=== PATIENT | male | born 1975 | race Caucasian/White ===

== ENCOUNTER 2024-03-11 20:09 | Emergency (ER) | payer MEDICAID ==
[~2024-03-11] VITALS: Ht 177.8 cm; Wt 85.4 kg
[2024-03-12 00:36] VITALS: BP 166/108; PULSE 82; RESP 18; TEMP 97.9; O2SAT 99
== END 2024-03-12 02:10 | disposition home or self-care (01) ==
LOC: ER 20:09
DX: S63.256A Unspecified dislocation of right little finger, initial encounter (principal); S40.012A Contusion of left shoulder, initial encounter; S20.212A Contusion of left front wall of thorax, initial encounter; S90.512A Abrasion, left ankle, initial encounter; Z98.890 Other specified postprocedural states; V09.9XXA Pedestrian injured in unspecified transport accident, initial encounter; Y93.01 Activity, walking, marching and hiking; Y92.89 Other specified places as the place of occurrence of the external cause; Y99.8 Other external cause status
CPT/HCPCS: 26770; 71101; 73030; 73140

== ENCOUNTER 2024-12-28 00:46 | Emergency (ER) | payer SELFPAY ==
[~2024-12-28] VITALS: Ht 177.8 cm; Wt 97.3 kg
[2024-12-28] MEDS: cloNIDine HCL 0.1 MG TAB PO ONE (01:20)
[2024-12-28 01:27] VITALS: RESP 16; TEMP 96.7; O2SAT 95
[2024-12-28] MEDS ORDERED: AMOX500T92 PO (01:30)
--- NOTE | 2024-12-28 01:30 | ED.PDOC ---
Eye-HPI HPI Comments 49-year-old male presents to ER for foreign body to right ear x1 day. Patient reports that he got a black rubber ear bud piece stuck in his right ear yesterday morning at 10:00 a.m. and presents to ER for foreign body removal. Denies any pain. Reports he attempted to remove the foreign body using tweezers without success. Patient does presents to ER hypertensive on arrival at 175/104, reporting that he does have history of hypertension but does not take his blood pressure medications as prescribed. Denies headache, dizziness, nausea/vomiting or any further symptoms/complaints Chief Complaint: Foreign Body Time Seen by MD: 00:51 Primary Care Provider: NONE Reviewed Notes: Nurses Notes, Medications, Allergies Allergies: Coded Allergies: NO KNOWN ALLERGIES (Unverified , 04/18/23) Home Meds Active Scripts Amoxicillin & Pot Clavulanate (Amoxicillin/Potassium Cla) 500 Mg Tab, 1 TAB PO BID for 7 Days, #14 TAB 0 Refills Prov:MONICA QUIROZ 12/28/24 Information Source: Patient Mode of Arrival: Ambulatory Past Medical History PAST MEDICAL HISTORY: Denies Surgical History: Appendectomy Family History Family History: Family hx of DM Social History Smoker: Non-Smoker Alcohol: Denies ETOH Use Drugs: Denies Drug Use Lives In: Home Constitutional: denies: chills, diaphoresis, fatigue, fever, malaise, sweats, weakness, others EENTM: reports: others ( STATED IN HPI) Respiratory: denies: cough, hemoptysis, orthopnea, SOB at rest, shortness of breath, SOB with excertion, stridor, wheezing, others Cardiovascular: denies: chest pain, dizzy spells, diaphoresis, Dyspnea on exertion, edema, irregular heart beat, left arm pain, lightheadedness, palpitations, PND, syncope, others Gastrointestinal: denies: abdomen distended, abdominal pain, blood streaked bowels, constipated, diarrhea, dysphagia, difficulty swallowing, hematemesis, melena, nausea, poor appetite, poor fluid intake, rectal bleeding, rectal pain, vomiting, others Genitourinary: denies: burning, dysuria, flank pain, frequency, hematuria, incontinence, penile discharge, penile sore, pain, testicle pain, testicle swelling, urgency, others Neurological: denies: dizziness, fainting, headache, left sided numbness, left sided weakness, numbness, paresthesia, pre-existing deficit, right sided numbness, right sided weakness, seizure, speech problems, tingling, tremors, weakness, others Musculoskeletal: denies: back pain, gout, joint pain, joint swelling, muscle pain, muscle stiffness, neck pain, others Integumetry: denies: bruises, change in color, change in hair/nails, dryness, laceration, lesions, lumps, rash, wounds, others Allergic/Immunocompromised: denies: Difficulty Healing, Frequent Infections, Hives, Itching, others Hematologic/Lymphatic: denies: anemia, blood clots, easy bleeding, easy bruising, swollen glands, others Endocrine: denies: excessive hunger, excessive sweating, excessive thirst, excessive urination, flushing, intolerance to cold, intolerance to heat, unexplained weight gain, unexplained weight loss, others Psychiatric: denies: anxiety, bipolar disorder, depression, hopeless, panic disorder, schizophrenia, sleepless, suicidal, others Physical Exam General Appearance: No Apparent Distress, Obese HEENT: PERRL/EOMI, Pharynx Normal, TMs Normal, Other (BLACK RUBBER EAR BUD FOREIGN BODY NOTED IN RIGHT MIDDLE EAR CANAL WITHOUT ANY APPRECIABLE ERYTHEMA/DRAINAGE/BLEEDING. EAR EXAM ON LEFT-UNREMARKABLE) Neck: Full Range of Motion, Non-Tender, Normal Respiratory: Chest Non-Tender, Lungs Clear, No Accessory Muscle Use, No Respiratory Distress, Normal Breath Sounds Cardiovascular: No Murmur, No Gallop, Regular Rate/Rhythm Breast Exam: Deferred Gastrointestinal: NOT DONE Genitalia: Deferred Pelvic: Deferred Rectal: Deferred Extremities: Normal capillary refill, Normal range of motion Neurologic: Alert, [employer] [place] II-XII nml as Tested, No Motor Deficits, Normal Affect, Normal Mood, No Sensory Deficits Cerebellar Function: Normal Reflexes: Normal Skin: Dry, Normal Color, Warm Lymphatic: No Adenopathy Was a procedure done? Was a procedure done?: Yes Sedation Sedation?: No Foreign Body Removal Foreign body in: Ear (Right ear) Procedure: Identified, Removed (Black rubber ear bud foreign body fully removed from right ear using alligator forceps. Minimal erythema noted in right middle ear canal post foreign body removal. Remainder of right ear exam post foreign body removal-unremarkable) Informed consent obtained: Yes Risks/benefits/alt described: Yes EENT DIFF Eye: N/A Ear: Abrasion, Cerumen Impaction, Otitis Externa, Perforation X-Ray, Labs, Meds, VS Vital Signs Date Time Temp Pulse Resp B/P (MAP) Pulse Ox O2 Delivery O2 Flow Rate FiO2 12/28/24 01:27 95 Room Air* 0 21 12/28/24 01:27 96.7 85 16 175/104 (127) 95 96.7 12/28/24 01:20 190/114 12/28/24 00:51 97.7 85 16 175/104 (127) 95 97.7 Current Medications Medications (Trade) Dose Ordered Sig/Sidney Route Start Time Stop Time Status Last Admin Clonidine HCl (Catapres Tablet) 0.2 mg ONCE ONCE PO 12/28/24 01:00 12/28/24 01:01 DC 12/28/24 01:20 Clonidine 0.2 mg p.o. ordered Patient had improvement in symptoms prior to discharge Advised on importance of monitoring/recording blood pressure readings closely at home Advised on importance of taking blood pressure medications as prescribed Advised to follow up with PCP in 1-2 days Patient verbalized understanding and agreeable with current plan of care Advised to return to ER immediately if symptoms worsen Time of 1ST Reevaluation: 01:02 Reevaluation 1ST: N/A Patient Education/Counseling: Diagnosis, Treatment, Prognosis, Need For Follow Up Family Education/Counseling: No Family Present Departure 1 Departure Time of Disposition: 01:22 Impression: Primary Impression: Foreign body of ear, right Qualified Codes: T16.1XXA - Foreign body in right ear, initial encounter Additional Impression: Poorly-controlled hypertension Disposition: 01 HOME / SELF CARE / HOMELESS Condition: Stable e-Prescriptions Amoxicillin & Pot Clavulanate (Amoxicillin/Potassium Cla) 500 Mg Tab 1 TAB PO BID for 7 Days, #14 TAB 0 Refills Prov: MONICA QUIROZ 12/28/24 Discharged With: Self Critical Care Note Critical Care Time?: No Stability Stability form required: No Heart Score Heart Score: Heart Score Response (Comments) Value History N/A 0 EKG N/A 0 Age N/A 0 Risk Factors N/A 0 Troponin N/A 0 Total 0 MONICA QUIROZ December 28, 2024 01:30
[2024-12-28 01:54] VITALS: BP 137/77; PULSE 79
== END 2024-12-28 01:56 | disposition home or self-care (01) ==
LOC: ER 00:48
DX: T16.1XXA Foreign body in right ear, initial encounter (principal); Z79.899 Other long term (current) drug therapy; Z90.49 Acquired absence of other specified parts of digestive tract; W44.G1XA Audio device entering into or through a natural orifice, initial encounter; Y93.89 Activity, other specified; Y92.89 Other specified places as the place of occurrence of the external cause; Y99.8 Other external cause status
CPT/HCPCS: 69200